=== PATIENT | male | born 1960 | race African-American/Black ===

== ENCOUNTER 2019-11-25 19:15 | Inpatient (IN) | payer MEDICAID ==
[~2019-11-25] VITALS: Ht 170.2 cm; Wt 64.6 kg
[2019-11-26 12:31] VITALS: Ht 170.2 cm; Wt 64.6 kg
[2019-11-28 09:32] VITALS: BP 146/100
[2019-11-28] MEDS ORDERED: BACTRIM DS TAB1 EAC1 PO (13:06)
== END 2019-11-28 14:59 | disposition home or self-care (01) | DRG 872 ==
LOC: D.ER 19:15 → D.M2 21:56 → D.ICU 21:56 → D.M2 11-26 17:52
PROVIDERS: ADMIT Family Medicine; ATTEND Family Medicine
DX: A41.9 Sepsis, unspecified organism (principal); N39.0 Urinary tract infection, site not specified; N17.9 Acute kidney failure, unspecified; E87.1 Hypo-osmolality and hyponatremia; D61.818 Other pancytopenia; E83.42 Hypomagnesemia; R51 Headache; D64.9 Anemia, unspecified; K52.9 Noninfective gastroenteritis and colitis, unspecified